=== PATIENT | female | born 1945 | race Caucasian/White ===

== ENCOUNTER 2016-03-26 22:08 | Emergency (ER) | payer MEDICARE, BC ==
[~2016-03-26] VITALS: Ht 165.1 cm; Wt 57.2 kg
[2016-03-26 23:59] VITALS: BP 150/81
== END 2016-03-27 00:06 | disposition home or self-care (01) ==
LOC: ER 22:13
DX: S09.90XA Unspecified injury of head, initial encounter (principal); S00.83XA Contusion of other part of head, initial encounter; H54.8 Legal blindness, as defined in USA; I10 Essential (primary) hypertension; X58.XXXA Exposure to other specified factors, initial encounter; Y93.9 Activity, unspecified; Y92.9 Unspecified place or not applicable; Y99.9 Unspecified external cause status
CPT/HCPCS: 99281; A4606; Z7502; Z7610